=== PATIENT | female | born 1975 | race Caucasian/White ===

== ENCOUNTER 2024-02-21 17:11 | Emergency (ER) | payer SELFPAY ==
[2024-02-21] VITALS (7 sets, daily range): BP systolic 92–131; BP diastolic 47–77; PULSE 62–89; RESP 16–20; TEMP 36.4–36.8; O2SAT 95–100; BMI 21.9
--- NOTE | 2024-02-21 17:14 | ED_ITS ---
<Statement entered by Callie Gonzalez DO - 02/21/24 23:52> I was consulted by the MATHIEU, and we discussed the complexity of the problems being addressed. I approved the treatment and management plan for this patient's care in the emergency department, thus performing a substantive portion of the medical decision making. Callie Gonzalez DO Discharge Plan Disposition Patient Disposition: Home, Self-Care Condition: Good Prescriptions Prescriptions: New doxycycline hyclate 100 mg capsule 100 mg PO BID 10 Days Qty: 20 0RF prednisone 50 mg tablet 50 mg PO DAILY 5 Days Qty: 5 0RF albuterol sulfate 90 mcg/actuation HFA aerosol inhaler 1 inh inhalation Q4H PRN (Reason: shortness of breath or wheezing) Qty: 8.5 0RF iovhlkivaxosdwl-skmtawtxs-VB [Bromfed DM] 2-30-10 mg/5 mL syrup 5 ml PO Q4H PRN (Reason: sinus symptoms) Qty: 118 0RF Referrals Follow up/Referrals: JamesViral [Referring] - See instructions Activity Restrictions/Add. Instructions Additional Instructions/Restrictions: Please follow-up with your PCP for no improvement within 48 hours. Absent antibiotics steroids and inhaler cough medicine to your pharmacy. If you have increasing or worsening signs or symptoms return to the ER as needed Clinical Impressions Clinical Impression: Bronchitis, Acute lower respiratory tract infection Stand Alone Forms Stand Alone Forms: Work/School Release Print Language Print Language: Amharic Discharge ED Provider: Callie Gonzalez General Adult HPI General Chief complaint: Upper Respiratory Infection Stated complaint: abdominal pain Time Seen by Provider: 02/21/24 17:14 History of Present Illness HPI narrative: Patient presents for evaluation of nonproductive cough fever and chest wall pain with coughing. Patient states she began having a fever and nonproductive cough 2 to 3 days ago however last night she began having essentially intractable coughing and has associated chest wall pain in the left lower rib cage and left posterior rib cage with coughing. She denies any nausea vomiting diarrhea shortness of breath hemoptysis hematochezia melena hematemesis hematuria. She is a smoker but is on no control and has had a hysterectomy. Related Data Previous Rx's ?Medication ?Instructions ?Recorded albuterol sulfate 90 mcg/actuation 1 inh inhalation Q4H PRN shortness 02/21/24 aerosol inhaler of breath or wheezing #8.5 grams oratimnpnnyxzfi-ywsyhraviovpyxh-YA 5 ml PO Q4H PRN sinus symptoms 02/21/24 2 mg-30 mg-10 mg/5 mL oral syrup #118 mL (Bromfed DM) doxycycline hyclate 100 mg capsule 100 mg PO BID 10 days #20 caps 02/21/24 prednisone 50 mg tablet 50 mg PO DAILY 5 days #5 tabs 02/21/24 Allergies Allergy/AdvReac Type Severity Reaction Status Date / Time No Known Allergies Allergy Verified 02/21/24 17:25 [facility] Disclaimer: The information contained in this section may have been updated after the patient was seen, as this information can be updated by other users. Social History Smoking Status: Current every day smoker alcohol intake: never current occupational status: employed Travel in the last 8 weeks: None ROS Obtained: Yes Systems reviewed as appropriate & no additional complaints except as documented Physical Exam General General appearance: alert and in no apparent distress Respiratory Respiratory exam: Present wheezes (Faint end expiratory wheezes in the lower lung bustillo); Absent normal lung sounds bilaterally Cardiovascular Cardiovascular exam: Present regular rate Neurological Exam Neurological exam: Present alert and oriented X3 Medical Decision Making Medical Records Medical records reviewed: Yes I reviewed the patient's medical records. Screening: Per USPSTF and CDC recommendations, given the prevalence of disease in our region, it is our hospital?s policy to screen for HIV and viral Hepatitis for all patients aged 18 and over and those with ongoing risk factors. Micah Inquiry Pt receiving controlled substance: No Vital Signs: 02/21/24 17:12 02/21/24 17:41 02/21/24 18:19 Temperature 98.2 F Temperature Source Oral Pulse Rate 74 62 Pulse Rate [Radial] 89 Respiratory Rate 16 Blood Pressure 92/56 L 110/77 Blood Pressure [Right Arm] 131/54 L Blood Pressure Mean [Right Arm] 79 Blood Pressure Source [Right Arm] Automatic Cuff Blood Pressure Position [Right Arm] Sitting 02 Sat by Pulse Oximetry 99 99 98 Oxygen Delivery Method Room Air Room Air Room Air 02/21/24 18:30 02/21/24 19:00 02/21/24 19:30 Temperature Temperature Source Pulse Rate 65 78 83 Pulse Rate [Radial] Respiratory Rate Blood Pressure 115/69 112/64 95/47 L Blood Pressure [Right Arm] Blood Pressure Mean [Right Arm] Blood Pressure Source [Right Arm] Blood Pressure Position [Right Arm] 02 Sat by Pulse Oximetry 100 95 97 Oxygen Delivery Method Room Air Lab Data Lab results reviewed: Yes I reviewed the patient's lab results. Lab Results 02/21/24 17:22: SARS-CoV-2 (PCR) Not detected, Influenza Type A (PCR) Not detected, Influenza Type B (PCR) Not detected, RSV (PCR) Not detected, Rhinovirus (PCR) Not detected 02/21/24 17:55: WBC 7.9, RBC 3.85 L, Hgb 11.1 L, Hct 34.2 L, MCV 88.8, MCH 28.8, MCHC 32.5, RDW 12.7, Plt Count 232, MPV 10.5 H, Neut % (Auto) 43.2, Lymph % (Auto) 45.2, Williamson % (Auto) 5.6, Eos % (Auto) 5.3, Baso % (Auto) 0.6, Neut # (Auto) 3.4, Lymph # (Auto) 3.6, Williamson # (Auto) 0.4, Eos # (Auto) 0.4, Baso # (Auto) 0.1, PT 10.3, INR 0.93, Sodium 137, Potassium 4.1, Chloride 105, Carbon Dioxide 27, Anion Gap 9.1, BUN 15, Creatinine 0.80, Estimated Creat Clear 76, Estimated GFR 77, Est GFR ( Amer) 93, Glucose 115 H, Calcium 9.0, Magnesium 2.3, Total Bilirubin 0.5, AST 34, ALT 17, Alkaline Phosphatase 47, Troponin I < 0.01, NT-Pro-B Natriuret Pep < 20.0, Total Protein 7.4, Albumin 4.5, Globulin 2.9, Albumin/Globulin Ratio 1.6, Lipase 78, Procalcitonin < 0.030 02/21/24 17:55 02/21/24 17:55 Orders (Tests/Meds): ED MEDICATIONS Discontinued Medications Generic Name Dose Route Start Last Admin Trade Name Freq PRN Reason Stop Dose Admin Acetaminophen 1,000 mg 02/21/24 17:33 02/21/24 18:05 Acetaminophen 500mg Tab PO 02/21/24 17:34 1,000 mg ONCE ONE Administration Albuterol/Ipratropium 6 ml 02/21/24 17:33 02/21/24 18:07 Ipratropium/Albuterol 3 Ml Neb IH 02/21/24 17:34 6 ml ONCE ONE Administration Dexamethasone Sodium Phosphate 10 mg 02/21/24 17:33 02/21/24 18:06 Dexamethasone 4mg/Ml 5ml Mdv IV 02/21/24 17:34 10 mg ONCE ONE Administration Doxycycline Hyclate 100 mg 02/21/24 20:10 Doxycycline Hycl 100 Mg Tablet PO 02/21/24 20:11 ONCE ONE Iopamidol 70 ml 02/21/24 19:17 02/21/24 19:20 Iopamidol-370 (76%);100ml Bottle IV 02/21/24 19:18 70 ml ONCE ONE Administration Ketorolac Tromethamine 15 mg 02/21/24 17:33 02/21/24 18:05 Ketorolac 30mg/Ml Vial IV 02/21/24 17:34 15 mg ONCE ONE Administration Sodium Chloride 40 ml 02/21/24 19:17 02/21/24 19:19 0.9 % Sodium Chloride 50 Ml Vial IV 02/21/24 19:18 40 ml ONCE ONE Administration ORDERS Category Date Time Status CT angio chest PE protocol Stat Cat Scan 02/21/24 19:00 Completed Chest XR 2 view (NOT portable) [XR chest 2V] Stat Exams 02/21/24 17:33 Completed BNP [NT Pro Brain Natriuretic Pep.] Stat Lab 02/21/24 17:55 Completed CBC w/Auto Diff [Complete Blood Count Auto Diff] Stat Lab 02/21/24 17:55 Completed CMP [Comprehensive Metabolic Panel] Stat Lab 02/21/24 17:55 Completed INR [Prothrombin Time INR] Stat Lab 02/21/24 17:55 Completed Lipase Stat Lab 02/21/24 17:55 Completed Magnesium Stat Lab 02/21/24 17:55 Completed Mini Respiratory Panel Stat Lab 02/21/24 17:22 Completed Procalcitonin Stat Lab 02/21/24 17:55 Completed Trop I [Troponin I] Stat Lab 02/21/24 17:55 Completed Troponin I Q3H Lab 02/21/24 22:00 Ordered Troponin I Q3H Lab 02/22/24 01:00 Ordered HEART Score History (anamnesis): Slightly suspicious ECG: Normal Age: 45-65 years Risk factors: 1-2 risk factors Troponin: </= normal limit HEART Score: 2 Medical Decision Narrative: In summary patient is a 48-year-old female who presents to the emergency department for evaluation of cough fever and chest wall pain with coughing. Patient is hemodynamically stable with a blood pressure 131/54 pulse 89 breathing 16 times a minute satting at 99% on room air upon arrival, and afebrile at 98.2. Physical exam reveals some slight tenderness in the left anterior lower rib cage in the left posterior rib cage, no palpable bony deformities, patient has faint end expiratory wheezes in the bilateral lower bustillo, patient is normal sinus rhythm on the bedside monitor satting at 99% on room air at the time my exam. Heart sounds are normal patient has no abdominal tenderness no rebound or guarding no rigidity with normal bowel sounds.. Differential diagnosis includes viral versus bacterial lower respiratory tract infection versus PE etc. Initial workup will be conducted with hematologic labs plain film chest x-ray respiratory swabs.. Initial interventions include DuoNeb Decadron Toradol Tylenol. Initial workup reviewed by me shows that her hematologic labs are nonactionable troponins undetectable and my informed interpretation of her plain film chest x-ray shows no acute processes. Respiratory panel was negative. Upon repeat evaluation patient reported still increasing pain and no improvement after initial interventions thus I have ordered CTA PE protocol despite her being negative by years criteria. Reassuringly my informed interpretation of her CT scan PE protocol does not show any thrombus however it does show bronchial thickening suggestive of bronchitis or lower respiratory tract infection but no infiltrates or other acute processes prior to radiology read. Given this patient is appropriate for discharge with prescription for steroids albuterol inhaler Bromfed and doxycycline. Patient given strict return precautions and will follow-up PCP within 48 hours. Critical Care Critical Care Time Critical Care Time: No
--- NOTE | 2024-02-21 17:33 | XR_ITS ---
PROCEDURE INFORMATION: Exam: XR Chest Exam date and time: 02/21/2024 5:27 PM Age: 48 years old Clinical indication: Cough and fever; Additional info: Cough fever chest pain with coughing TECHNIQUE: Imaging protocol: Radiologic exam of the chest. Views: 2 views. COMPARISON: No relevant prior studies available. FINDINGS: Lungs: Subtle superior segment right lower lobe opacity may represent early developing consolidation. Pleural spaces: Unremarkable. No pleural effusion. No pneumothorax. Heart/Mediastinum: Unremarkable. No cardiomegaly. Bones/joints: Unremarkable. IMPRESSION: Subtle superior segment right lower lobe opacity may represent early developing consolidation.
[2024-02-21 17:43] LABS: Coronavirus 19, PCR Not Detected (NotDetected); Human Rhinovirus Not Detected (NotDetected); Influenza A, PCR Not Detected (NotDetected); Influenza B, PCR Not Detected (NotDetected); Respiratory Syncytial Virus Not Detected (NotDetected)
[2024-02-21 18:05] LABS: Basophils # 0.1 K/mm3 (0-0.2); Basophils % 0.6 % (0.1-2.0); Eosinophils # 0.4 K/mm3 (0.0-0.4); Eosinophils % 5.3 % (0.1-12.0); Hematocrit 34.2 % (37.0-47.0); Hemoglobin 11.1 g/dL (12.2-16.2); Lymphocytes # 3.6 K/mm3 (0.7-4.5); Lymphocytes % 45.2 % (10-50); Mean Corpuscular HGB Conc 32.5 g/dL (31.8-35.4); Mean Corpuscular Hemoglobin 28.8 pg (27.0-31.2); Mean Corpuscular Volume 88.8 fl (81-99); Mean Platelet Volume 10.5 fl (7.4-10.4); Monocytes # 0.4 K/mm3 (0.1-1.0); Monocytes % 5.6 % (1.7-9.3); Neutrophils # 3.4 K/mm3 (1.8-7.8); Neutrophils % 43.2 % (37.0-80.0); Platelet Count 232 K/mm3 (142-424); Red Blood Count 3.85 M/mm3 (4.20-5.40); Red Cell Distribution Width 12.7 % (11.5-17.5); White Blood Count 7.9 K/mm3 (4.8-10.8)
[2024-02-21] MEDS: ACETAMINOPHEN 500MG TAB 1000 MG PO (18:05)
[2024-02-21] MEDS: KETOROLAC 30MG/ML VIAL 15 MG IV (18:05)
[2024-02-21] MEDS: DEXAMETHASONE 4MG/ML 5ML MDV 10 MG IV (18:06)
[2024-02-21] MEDS: IPRATROPIUM/ALBUTEROL 3 ML NEB 6 ML IH (18:07)
[2024-02-21 18:13] LABS: Albumin Level 4.5 g/dl (3.5-5.0); Chloride 105 mmol/L (98-107); Sodium 137 mmol/L (136-145)
[2024-02-21 18:16] LABS: Alanine Aminotransferase 17 U/L (12-78); Albumin/Globulin Ratio 1.6 (1.1-1.8); Alkaline Phosphatase 47 U/L (38-126); Aspartate Amino Transferase 34 U/L (14-36); Bilirubin,Total 0.5 mg/dl (0.2-1.3); Blood Urea Nitrogen 15 mg/dl (7-17); Carbon Dioxide 27 mmol/L (22.0-30.0); Creatinine Clearance Estimated 76 mL/min (50-200); Estimated Glomerular Filt Rate 77 ml/min (>60); GFR (African American) 93 ML/MIN (>60); Globulin 2.9 g/dL (1.3-3.2); Glucose 115 mg/dl (74-100); Total Protein,Serum 7.4 g/dl (6.3-8.2)
[2024-02-21 18:17] LABS: Lipase 78 U/L (23-300); Magnesium 2.3 mg/dl (1.6-2.3)
[2024-02-21 18:19] LABS: INR 0.93 (0.9-1.1); Prothrombin Time 10.3 seconds (9.2-12.1)
[2024-02-21 18:25] LABS: NT Pro Brain Natriuretic Pep. < 20.0 pg/mL (0-125)
[2024-02-21 18:46] LABS: Anion Gap 9.1 mEq/L (5-15); Potassium 4.1 mmoL/L (3.5-5.1)
--- NOTE | 2024-02-21 19:00 | CT_ITS ---
PROCEDURE INFORMATION: Exam: CTA Chest With Contrast Exam date and time: 02/21/2024 7:16 PM Age: 48 years old Clinical indication: Pain; Other: Chest; Additional info: Cough fever chest pain TECHNIQUE: Imaging protocol: Computed tomographic angiography of the chest with contrast. Exam focused on the arteries. 3D rendering (Not supervised by radiologist): MIP and/or 3D reconstructed images were created by the technologist. Radiation optimization: All CT scans at this facility use at least one of these dose optimization techniques: automated exposure control; mA and/or kV adjustment per patient size (includes targeted exams where dose is matched to clinical indication); or iterative reconstruction. Contrast material: ISOVUE; Contrast volume: 70 ml; Contrast route: INTRAVENOUS (IV); COMPARISON: CR XR CHEST 2V 02/21/2024 5:27 PM FINDINGS: Pulmonary arteries: No CT angiography evidence of pulmonary embolism. Aorta: Unremarkable. No aortic aneurysm. No aortic dissection. Lungs: Bibasilar subsegmental atelectasis without consolidation likely related to x-ray findings. Pleural spaces: Unremarkable. No pneumothorax. No pleural effusion. Heart: Unremarkable. No cardiomegaly. No pericardial effusion. Lymph nodes: Mild peribronchial edema with bilateral hilar and mediastinal reactive lymph nodes favors viral process versus reactive airways without consolidation. Bones/joints: Unremarkable. No acute fracture. Soft tissues: Unremarkable. IMPRESSION: 1. Bibasilar subsegmental atelectasis without consolidation likely related to x-ray findings. 2. Mild peribronchial edema with bilateral hilar and mediastinal reactive lymph nodes favors viral process versus reactive airways without consolidation. 3. No CT angiography evidence of pulmonary embolism.
[2024-02-21 19:18] LABS: Procalcitonin < 0.030 ng/mL (0.0-2.0)
[2024-02-21] MEDS: 0.9 % SODIUM CHLORIDE 50 ML VIAL 40 ML IV (19:19)
[2024-02-21] MEDS: IOPAMIDOL-370 (76%);100ML BOTTLE 70 ML IV (19:20)
[2024-02-21 19:53] LABS: Troponin I < 0.01 ng/ml (0.00-0.034)
[2024-02-21] MEDS: DOXYCYCLINE HYCL 100 MG TABLET PO (20:40)
== END 2024-02-21 20:50 | disposition home or self-care (01) ==
PROVIDERS: Physician Assistant; Emergency Provider Emergency Medicine
DX: J22 Unspecified acute lower respiratory infection (principal); J40 Bronchitis, not specified as acute or chronic; R50.9 Fever, unspecified; R05.9 Cough, unspecified; R07.89 Other chest pain; R10.9 Unspecified abdominal pain
CPT/HCPCS: 71046; 71275; 80053; 83690; 83735; 83880; 84145; 84484; 85025; 85610; 87631; 96374; 96375; 99285; J1100; J1885; J7620; Q9967

== ENCOUNTER 2024-03-21 15:20 | Emergency (ER) | payer SELFPAY ==
[2024-03-21 15:39] VITALS: BP 121/43; PULSE 109; RESP 18; TEMP 36.5; O2SAT 99; BMI 21.4
--- NOTE | 2024-03-21 15:46 | PC.NURSE ---
1546 Benja ANDRADE to triage to assess patient
--- NOTE | 2024-03-21 15:48 | PC.NURSE ---
1548 Per Benja ANDRADE no stroke activation at this time
--- NOTE | 2024-03-21 15:50 | PC.NURSE ---
1550 Per patient she states she has been under a lot of stress.
--- NOTE | 2024-03-21 15:51 | PC.NURSE ---
DR BUCK AT BEDSIDE
--- NOTE | 2024-03-21 15:58 | HMH.EDGENADL ---
Discharge Plan Disposition Patient Disposition: Home, Self-Care Prescriptions Prescriptions: New esomeprazole magnesium 20 mg capsule,delayed release(DR/EC) 20 mg PO DAILY 56 Days Qty: 56 1RF No Action doxycycline hyclate 100 mg capsule 100 mg PO BID 10 Days Qty: 20 0RF prednisone 50 mg tablet 50 mg PO DAILY 5 Days Qty: 5 0RF albuterol sulfate 90 mcg/actuation HFA aerosol inhaler 1 inh inhalation Q4H PRN (Reason: shortness of breath or wheezing) Qty: 8.5 0RF [id number]-[id number] [Bromfed DM] 2-30-10 mg/5 mL syrup 5 ml PO Q4H PRN (Reason: sinus symptoms) Qty: 118 0RF Referrals Follow up/Referrals: Markos Velez II, MD [Staff Physician] - See instructions Mariusz Ramirez [Primary Care Provider] - See instructions Activity Restrictions/Add. Instructions Additional Instructions/Restrictions: Call your family doctor to establish care for this visit to the emergency department and schedule follow-up within 48 hours to ensure improvement. If you have any worsening of your condition or any other concerning signs or symptoms, return to the emergency department or your primary care doctor for further evaluation. Clinical Impressions Clinical Impression: Headache, Tremor, Malaise Print Language Print Language: Serbian Discharge ED Provider: Rl Yousif General Adult HPI General Chief complaint: Headache Stated complaint: involuntary head movement Time Seen by Provider: 03/21/24 15:30 Mode of Arrival: Ambulatory Source of Information: Patient Limitations: No Limitations Description of Symptoms (Recalled from ER Triage Doc. by RN): Pt presents for evaluation of involuntary head movements and right shoulder pain x2 days. Pt states she also now has a headache. PT states tremoring started approx 1330 History of Present Illness HPI narrative: Please note that above description of symptoms, in this electronic medical record under categorization of recalled from ER triage doctor by RN are reflective of an initial nursing assessment, however, is not reflective of my full history and physical exam that was personally taken and clarified. Consequentially, this preceding description of symptoms, which may include the patient's categorized chief complaint in the EMR, do not reflect my personal clinical impression, and the ultimate description of history of present illness and patient stated complaints should be deferred to this section of the note. Unless stated otherwise or congruent with this section of the note, additional signs, symptoms, or incongruence should be interpreted as inaccurate with my clinical impression. Related Data Previous Rx's ?Medication ?Instructions ?Recorded albuterol sulfate 90 mcg/actuation 1 inh inhalation Q4H PRN shortness 02/21/24 aerosol inhaler of breath or wheezing #8.5 grams hxkxpibitgbcqpz-judncqyikaerffr-PA 5 ml PO Q4H PRN sinus symptoms 02/21/24 2 mg-30 mg-10 mg/5 mL oral syrup #118 mL (Bromfed DM) doxycycline hyclate 100 mg capsule 100 mg PO BID 10 days #20 caps 02/21/24 prednisone 50 mg tablet 50 mg PO DAILY 5 days #5 tabs 02/21/24 esomeprazole magnesium 20 mg 20 mg PO DAILY 8 weeks #56 caps 03/21/24 capsule,delayed release Allergies Allergy/AdvReac Type Severity Reaction Status Date / Time No Known Allergies Allergy Verified 02/21/24 17:25 [facility] Disclaimer: The information contained in this section may have been updated after the patient was seen, as this information can be updated by other users. Social History (Updated 02/21/24 @ 20:33 by MAGDALENO Worrell) Smoking Status: Never smoker alcohol intake: never current occupational status: employed Travel in the last 8 weeks: None Have you lived/traveled outside [place] in past 30 days?: No Contact w/someone who lives/traveled outside [place] past 30 days?: No Exposure to someone with infectious disease in past 14 days?: No Do you have a fever (greater than 100.4 F or 38 C)?: No Have you tested positive for COVID-19: No Exposed to someone with COVID-19 in past 14 days?: No Do you have a sore throat?: No Do you have a cough?: No Do you have any weakness?: No Do you have any diarrhea?: No Are you experiencing any unusual bleeding?: No Do you have any muscle aches/pain?: No Do you have any abdominal pain?: No Are you experiencing loss of taste or smell?: No ROS Obtained: Yes All systems reviewed & no additional complaints except as documented Physical Exam General General appearance: alert, in no apparent distress, anxious and other (Tearful) Head Head exam: atraumatic and normocephalic Eye Eye exam: Present normal appearance, PERRL and EOMI Neck Neck exam: Present normal inspection, full ROM and trachea midline Respiratory Respiratory exam: Absent respiratory distress, wheezes, stridor, accessory muscle use or prolonged expiratory phase Cardiovascular Cardiovascular exam: Present other (Pulses equal symmetric in upper and lower extremities) Abdominal Exam Abdominal exam: Present soft; Absent distention, tenderness or pulsatile mass Extremities Exam Extremities exam: Absent edema Neurological Exam Neurological exam: Present alert, oriented X3, CN II-XII intact and normal gait; Absent motor sensory deficit Skin Skin exam: Present warm and dry; Absent diaphoresis or erythema Medical Decision Making Medical Records Medical records reviewed: Yes I reviewed the patient's medical records. Screening: Per USPSTF and CDC recommendations, given the prevalence of disease in our region, it is our hospital?s policy to screen for HIV and viral Hepatitis for all patients aged 18 and over and those with ongoing risk factors. Micah Inquiry Pt receiving controlled substance: No Micah was queried for this patient: No Vital Signs: 03/21/24 15:39 Temperature 97.7 F Temperature Source Oral Pulse Rate [Right] 109 H Respiratory Rate 18 Blood Pressure [Right Arm] 121/43 L Blood Pressure Mean [Right Arm] 69 Blood Pressure Source [Right Arm] Automatic Cuff Blood Pressure Position [Right Arm] Sitting 02 Sat by Pulse Oximetry 99 Oxygen Delivery Method Room Air Lab Data Lab Results 03/21/24 16:01: WBC 9.0, RBC 4.38, Hgb 12.5, Hct 38.4, MCV 87.7, MCH 28.5, MCHC 32.6, RDW 12.5, Plt Count 294, MPV 10.2, Neut % (Auto) 63.2, Lymph % (Auto) 27.9, [place] % (Auto) 5.2, Eos % (Auto) 2.7, Baso % (Auto) 0.7, Neut # (Auto) 5.7, Lymph # (Auto) 2.5, [place] # (Auto) 0.5, Eos # (Auto) 0.2, Baso # (Auto) 0.1, Sodium 142, Potassium 3.4 L, Chloride 103, Carbon Dioxide 28, Anion Gap 14.4, BUN 11, Creatinine 0.70, Estimated Creat Clear 84, Estimated GFR 90, Est GFR ( Amer) 109, Glucose 92, Calcium 8.8, Phosphorus 4.0, Magnesium 2.2, Total Bilirubin 0.4, AST 35, ALT 19, Alkaline Phosphatase 66, Total Creatine Kinase 58, Total Protein 8.0, Albumin 4.8, Globulin 3.2, Albumin/Globulin Ratio 1.5, Lipase 88, Plasma/Serum Alcohol < 10 03/21/24 18:34: Urine Opiates Screen Negative, Urine Methadone Screen Negative, Ur Barbituates Screen Negative, Ur Phencyclidine Scrn Negative, Ur Amphetamines Screen Negative, U Benzodiazepines Scrn Negative, Urine Cocaine Screen Negative, U Marijuana (THC) Screen Positive H 03/21/24 16:01 03/21/24 16:01 Orders (Tests/Meds): ED MEDICATIONS Discontinued Medications Generic Name Dose Route Start Last Admin Trade Name Ivanq PRN Reason Stop Dose Admin Acetaminophen 1,000 mg 03/21/24 17:53 03/21/24 18:00 Acetaminophen 500mg Tab PO 03/21/24 17:54 1,000 mg ONCE ONE Administration Ibuprofen 600 mg 03/21/24 17:53 03/21/24 18:00 Ibuprofen 600 Mg Tablet PO 03/21/24 17:54 600 mg ONCE ONE Administration Pantoprazole Sodium 40 mg 03/21/24 17:53 03/21/24 18:00 Pantoprazole 40mg Tablet PO 03/21/24 17:54 40 mg ONCE ONE Administration ORDERS Category Date Time Status CT head/brain wo con Stat Cat Scan 03/21/24 17:53 Completed CBC w/Auto Diff [Complete Blood Count Auto Diff] Stat Lab 03/21/24 16:01 Completed CK [Creatine Kinase] Stat Lab 03/21/24 16:01 Completed CMP [Comprehensive Metabolic Panel] Stat Lab 03/21/24 16:01 Completed Ethyl Alcohol Stat Lab 03/21/24 16:01 Completed Lipase Stat Lab 03/21/24 16:01 Completed Magnesium Stat Lab 03/21/24 16:01 Completed Phosphorous Stat Lab 03/21/24 16:01 Completed UDS [Drug Screen,Urine] Stat Lab 03/21/24 18:34 Completed Medical Decision Narrative: 48-year-old female presenting with head tremor. Patient has no previous medical history. States that she has had numerous social stressors and interpersonal stressors in the very recent past. Noting separation from her , stressors with her son, etc. States that beginning over the last couple days she has had a head tremor where her head just wants to nod on its own, usually resolves within a couple minutes, but it was not stopping today. Concerned she may be having a stroke. States that she feels like she is also having tunnel vision and objects are moving toward me. Also states that she feels as if she is having floaters in the lateral vision of her right eye, but no other vision loss. Still has peripheral vision. Also noting that her both of her legs feel weak, patient has joint pain, general body aches, etc. Numerous complaints. Difficult to nail down chief complaint other than head tremor. History was obtained via conversation with patient. On arrival, patient hemodynamically stable, alert, oriented x4, appropriate, GCS 15, moving all extremities spontaneously, pupils equal and reactive to light. Full physical exam performed and significant for very clinically well-appearing female no acute distress. NIHSS 0. Visual bustillo intact. Cardiopulmonary exam normal. Patient extremely tearful, anxious. She does have intermittent tremor of the head nodding. Otherwise unremarkable exam. Differential includes acute stress reaction, anxiety, depression, metabolic abnormality, urologic abnormality, less likely to be intracranial hemorrhage, CVA, dissection, among others. Patient placed on continuous cardiac monitoring and continuous pulse ox with initial blood pressure 121/43, heart rate 109, saturation 99% on room air. Reevaluation, patient states that she has multiple more complaints. Right-sided shoulder pain, bilateral knee pain, muscle tension, cough, headache, etc. At this point, I feel the patient is having symptom magnification and/or falsification. Also states that she now remembers that she had 1 episode of dark tarry stools and epigastric burning. Patient was given Tylenol, Motrin, PPI. For symptomatic management and correction of underlying abnormalities. Workup independently interpreted and significant for nonactionable CBC or chemistry, lipase negative, urinalysis positive for THC. CT head independently interpreted, no intracranial abnormality. On reevaluation, patient resting at baseline. Patient also has no tremor at all when I am able to visualize before entering the room, but tremor appears when I walk into the room. I feel this is consistent with either stress reaction or symptom falsification. Because patient at baseline without signs or symptoms of clinical decompensation, deemed appropriate for discharge. Results were relayed to patient who voiced understanding and were agreeable to outpatient management and follow up. I discussed my clinical impression with patient and answered all questions. At this time, the evidence for any other entities in the differential is insufficient to warrant any further testing or ED observation. This was explained as well. Advisory was given that persistent or worsening symptoms require further evaluation. I confirmed the understanding of this discussion. Property Utilization Manager disclaimer Much of this encounter note is an electronic preschool assistant principal spoken language to printed text. Electronic preschool assistant principal of the spoken language may permit errors. Although I have reviewed the note, some errors may still exist. Critical Care Critical Care Time Critical Care Time: No
[2024-03-21 16:13] LABS: Basophils # 0.1 K/mm3 (0-0.2); Basophils % 0.7 % (0.1-2.0); Eosinophils # 0.2 K/mm3 (0.0-0.4); Eosinophils % 2.7 % (0.1-12.0); Hematocrit 38.4 % (37.0-47.0); Hemoglobin 12.5 g/dL (12.2-16.2); Lymphocytes # 2.5 K/mm3 (0.7-4.5); Lymphocytes % 27.9 % (10-50); Mean Corpuscular HGB Conc 32.6 g/dL (31.8-35.4); Mean Corpuscular Hemoglobin 28.5 pg (27.0-31.2); Mean Corpuscular Volume 87.7 fl (81-99); Mean Platelet Volume 10.2 fl (7.4-10.4); Monocytes # 0.5 K/mm3 (0.1-1.0); Monocytes % 5.2 % (1.7-9.3); Neutrophils # 5.7 K/mm3 (1.8-7.8); Neutrophils % 63.2 % (37.0-80.0); Platelet Count 294 K/mm3 (142-424); Red Blood Count 4.38 M/mm3 (4.20-5.40); Red Cell Distribution Width 12.5 % (11.5-17.5)
[2024-03-21 16:18] LABS: Albumin Level 4.8 g/dl (3.5-5.0); Chloride 103 mmol/L (98-107); Sodium 142 mmol/L (136-145)
[2024-03-21 16:19] LABS: Potassium 3.4 mmoL/L (3.5-5.1)
[2024-03-21 16:21] LABS: Alanine Aminotransferase 19 U/L (12-78); Albumin/Globulin Ratio 1.5 (1.1-1.8); Alkaline Phosphatase 66 U/L (38-126); Anion Gap 14.4 mEq/L (5-15); Aspartate Amino Transferase 35 U/L (14-36); Bilirubin,Total 0.4 mg/dl (0.2-1.3); Blood Urea Nitrogen 11 mg/dl (7-17); Carbon Dioxide 28 mmol/L (22.0-30.0); Creatinine Clearance Estimated 84 mL/min (50-200); Estimated Glomerular Filt Rate 90 ml/min (>60); GFR (African American) 109 ML/MIN (>60); Globulin 3.2 g/dL (1.3-3.2)
[2024-03-21 16:22] LABS: Calcium 8.8 mg/dl (8.4-10.2); Glucose 92 mg/dl (74-100); Magnesium 2.2 mg/dl (1.6-2.3)
[2024-03-21 16:30] LABS: Ethyl Alcohol < 10 mg/dl (0-10)
--- NOTE | 2024-03-21 17:53 | CT_ITS ---
PROCEDURE INFORMATION: Exam: CT Head Without Contrast Exam date and time: 03/21/2024 6:07 PM Age: 48 years old Clinical indication: Other: Tremor multiple days TECHNIQUE: Imaging protocol: Computed tomography of the head without contrast. Radiation optimization: All CT scans at this facility use at least one of these dose optimization techniques: automated exposure control; mA and/or kV adjustment per patient size (includes targeted exams where dose is matched to clinical indication); or iterative reconstruction. COMPARISON: No relevant prior studies available. FINDINGS: Brain: Normal. No hemorrhage. Unremarkable white matter. No mass effect. Cerebral ventricles: No ventriculomegaly. Paranasal sinuses: See Bones finding. Mastoid air cells: Visualized mastoid air cells are well aerated. Bones: Ylaf-op-ffyxiorq mucosal thickening of some of the ethmoids bilaterally and the right sphenoid and inferior left frontal sinus. No definite fluid levels. Soft tissues: Unremarkable. IMPRESSION: 1. No acute intracranial abnormality. 2. Incidental paranasal sinus disease of uncertain acuity.
[2024-03-21] MEDS: IBUPROFEN 600 MG TABLET PO (18:00)
[2024-03-21] MEDS: PANTOPRAZOLE 40MG TABLET 40 MG PO (18:00)
[2024-03-21] MEDS: ACETAMINOPHEN 500MG TAB 1000 MG PO (18:00)
--- NOTE | 2024-03-21 18:03 | HMH.ITSTN ---
Called about test and spoke to lead neurodiagnostic technologistpayton Heard. Per Félix go ahead and scan patient without test.
--- NOTE | 2024-03-21 18:05 | PC.NURSE ---
pt to ct
[2024-03-21 18:33] LABS: Creatine Kinase 58 U/L (30-135)
[2024-03-21 18:34] LABS: Lipase 88 U/L (23-300)
[2024-03-21 18:51] LABS: Amphetamine/Metha Screen,Urine Negative ng/ml (<1000)
[2024-03-21 18:52] LABS: Barbiturates Screen,Urine Negative ng/ml (<200); Benzodiazepines Screen,Urine Negative ng/ml (<200)
[2024-03-21 18:57] LABS: Cannabinoid Screen,Urine Positive ng/ml (<50); Cocaine Screen,Urine Negative ng/ml (<300)
[2024-03-21 18:58] LABS: Methadone Screen,Urine Negative ng/ml (<300)
[2024-03-21 18:59] LABS: Opiate Screen,Urine Negative ng/ml (<300); Phencyclidine Screen,Urine Negative ng/ml (<25)
[2024-03-21 19:40] VITALS: BP 107/67; PULSE 72; RESP 86; TEMP 36.9; O2SAT 98
== END 2024-03-21 19:45 | disposition home or self-care (01) ==
PROVIDERS: Emergency Provider Emergency Medicine; PCP Family Medicine
DX: R25.1 Tremor, unspecified (principal); R51.9 Headache, unspecified; R53.81 Other malaise; R25.0 Abnormal head movements; M25.511 Pain in right shoulder
CPT/HCPCS: 70450; 80053; 80307; 80320; 82550; 83690; 83735; 84100; 85025; 99284; G0480

== ENCOUNTER 2025-01-16 10:41 | Emergency (ER) | payer SELFPAY ==
[2025-01-16 11:14] VITALS: BP 109/58; RESP 20; TEMP 36.9; O2SAT 99; BMI 21.3
[2025-01-16 11:25] VITALS: BMI 21.2
[2025-01-16 11:30] LABS: Coronavirus 19, PCR Not Detected (NotDetected); Influenza B, PCR Not Detected (NotDetected)
--- NOTE | 2025-01-16 11:50 | CT_ITS ---
FINAL REPORT TECHNIQUE: Axial images through the abdomen and pelvis were performed without contrast. This study was performed with techniques to keep radiation doses as low as reasonably achievable, (ALARA). Individualized dose reduction techniques using automated exposure control or adjustment of mA and/or kV according to the patient's size were employed. CLINICAL HISTORY: left flank pain, possible kidney stone COMPARISON: None FINDINGS: CT ABDOMEN PELVIS WITHOUT CONTRAST: Abdomen: The lung bases are clear. The liver parenchyma is homogeneous. The gallbladder is present. The spleen, pancreas, adrenals and kidneys are unremarkable. Pelvis: The urinary bladder is decompressed. The appendix is not visualized. Surgical clips are present in the right lower quadrant. There is no pelvic mass or inflammation. The uterus is likely surgically absent. There are clips present in the left lateral pelvis as well. IMPRESSION: No acute abnormality of the abdomen or pelvis. Reviewed, Interpreted and Dictated by Pito Egan MD Transcribed by Veena Lou Authenticated and [facility]
--- NOTE | 2025-01-16 11:50 | XR_ITS ---
FINAL REPORT CLINICAL HISTORY: shortness of breath COMPARISON: None FINDINGS: A single portable view of the chest was obtained. The heart size and pulmonary vascularity are within normal limits. The mediastinum is within normal limits. No acute pulmonary abnormality is identified. The bony thorax is intact. IMPRESSION: No active cardiopulmonary disease. Reviewed, Interpreted and Dictated by Pito Egan MD Transcribed by Veena Lou Authenticated and . [facility]
--- NOTE | 2025-01-16 12:01 | ECG_ITS ---
APPROVED REPORT Exam: Resting ECG HR:94 bpm ECG Measurements Heart Rate 94 AXES MO 163 P 69 QRSd 94 QRS 74 QT 356 T 62 QTc 407 Conclusion SINUS RHYTHM POSSIBLE RIGHT VENTRICULAR CONDUCTION DELAY [RSR (QR) IN V1/V2] No STEMI Electronically signed by : RENE MENDENHALL, 01/17/2025 06:43:08
--- NOTE | 2025-01-16 12:02 | ED_ITS ---
Discharge Plan Disposition Patient Disposition: Home, Self-Care Prescriptions Prescriptions: New ondansetron 4 mg tablet,disintegrating 4 mg PO Q6H PRN (Reason: nausea and vomiting) Qty: 12 0RF No Action doxycycline hyclate 100 mg capsule 100 mg PO BID 10 Days Qty: 20 0RF prednisone 50 mg tablet 50 mg PO DAILY 5 Days Qty: 5 0RF albuterol sulfate 90 mcg/actuation HFA aerosol inhaler 1 inh inhalation Q4H PRN (Reason: shortness of breath or wheezing) Qty: 8.5 0RF goczlpnuuklecxf-idwdwwzow-SI [Bromfed DM] 2-30-10 mg/5 mL syrup 5 ml PO Q4H PRN (Reason: sinus symptoms) Qty: 118 0RF esomeprazole magnesium 20 mg capsule,delayed release(DR/EC) 20 mg PO DAILY 56 Days Qty: 56 1RF Referrals Follow up/Referrals: Ramirez,Viral, DO [Primary Care Provider, Medical] - See instructions Activity Restrictions/Add. Instructions Additional Instructions/Restrictions: Your workup today shows that you have flu A. You can take 800 mg of ibuprofen every 6 hours as needed over the next 2 to 3 days to help with your symptoms. You likely have component of pleurisy that is causing some of your pain and discomfort. You can take Tylenol 1000 mg every 6 hours as needed as well to help with your symptoms. I am given you a list of primary care doctors to follow-up with here locally. I encourage you to call them to schedule follow-up appointment. If you develop any new or worsening symptoms, or if you become concerned for your help for any reason, return to the emergency department for evaluation. I am also sending you with a course of Zofran to help with any nausea. Take this as prescribed. Clinical Impressions Clinical Impression: Influenza A Stand Alone Forms Stand Alone Forms: Work/School Release Instructions Patient Instructions: Cough Print Language Print Language: Georgian Discharge ED Provider: Law Franks Adult HPI General Chief complaint: Cough Stated complaint: fever, cough, lung pain, body aches Time Seen by Provider: 01/16/25 11:45 Mode of Arrival: Ambulatory Description of Symptoms (Recalled from ER Triage Doc. by RN): non productive cough, afebrile. Patient reports an oral temp of 103.5 this morning, body aches, headache, and pain below left lung that radiates to the back. Patient reports symptoms started on Monday. History of Present Illness HPI narrative: Lakeshia Bazan is a 49y female with past medical history of tobacco use who presents to the ED for complaints of sharp pains to the left flank and underneath her left ribs worse with breathing, body aches that began on monday and a fever of 103.5F this morning. Patient denies any abdominal pain, diarrhea. Related Data Previous Rx's ?Medication ?Instructions ?Recorded albuterol sulfate 90 mcg/actuation 1 inh inhalation Q4 H PRN shortness 02/21/24 aerosol inhaler of breath or wheezing #8.5 g joel xixntouwqowcees-xnxvzqefiowbejz-BT 5 ml PO Q4H PRN sin us symptoms 02/21/24 2 mg-30 mg-10 mg/5 mL oral syrup #118 mL (Bromfed DM) doxycycline hyclate 100 mg capsule 100 mg PO BID 10 da ys #20 caps 02/21/24 prednisone 50 mg tablet 50 mg PO DAILY 5 days #5 tab s 02/21/24 esomeprazole magnesium 20 mg 20 mg PO DAILY 8 weeks #5 6 caps 03/21/24 capsule,delayed release ondansetron 4 mg disintegrating 4 mg PO Q6H PRN nausea and 01/16/25 tablet vomiting #12 tabs Allergies Allergy/AdvReac Type Severity Reaction Status Date / Time No Known Allergies Allergy Verified 02/21/24 17:25 [facility] Disclaimer: The information contained in this section may have been updated after the patient was seen, as this information can be updated by other users. Social History (Updated 02/21/24 @ 20:33 by MAGDALENO Worrell) Smoking Status: Former smoker alcohol intake: never current occupational status: employed Travel in the last 8 weeks?: None Have you lived/traveled outside [place] in past 30 days?: No Contact w/someone who lives/traveled outside [place] past 30 days?: No Exposure to someone with infectious disease in past 14 days?: No Do you have a fever (greater than 100.4 F or 38 C)?: Yes Have you tested positive for COVID-19?: No Exposed to someone with COVID-19 in past 14 days?: No Do you have a sore throat?: No Do you have a cough?: Yes Do you have any weakness?: No Do you have any diarrhea?: No Are you experiencing any unusual bleeding?: No Do you have any muscle aches/pain?: Yes Do you have any abdominal pain?: No Are you experiencing loss of taste or smell?: No ROS Obtained: Yes Systems reviewed as appropriate & no additional complaints except as documented Physical Exam General General appearance: alert Comment: appears uncomfortable, in no acute respiratory distress Head Head exam: atraumatic Eye Eye exam: Present normal appearance ENT ENT exam: Present normal external ear exam Neck Neck exam: Present full ROM Chest Chest inspection: Present symmetric chest wall rise Respiratory Respiratory exam: Present normal lung sounds bilaterally; Absent respiratory distress, wheezes or stridor Cardiovascular Cardiovascular exam: Present regular rate and normal rhythm Abdominal Exam Abdominal exam: Present soft and tenderness (LUQ); Absent distention, guarding or rigidity Extremities Exam Extremities exam: Present normal inspection Back Exam Back exam: Present normal inspection and CVA tenderness (L); Absent CVA tenderness (R) Neurological Exam Neurological exam: Present alert and oriented X3 Psychiatric Psychiatric exam: Present normal affect Skin Skin exam: Present warm and dry Medical Decision Making Medical Records Screening: Per USPSTF and CDC recommendations, given the prevalence of disease in our region, it is our hospital?s policy to screen for HIV and viral Hepatitis for all patients aged 18 and over and those with ongoing risk factors. Micah Inquiry Pt receiving controlled substance: No Vital Signs: 01/16/25 11:14 01/16/25 12:04 01/16/25 14:58 Temperature 98.4 F 98.6 F Temperature Source Oral Oral Pulse Rate 96 H 87 Respiratory Rate 20 20 Blood Pressure 122/56 L 117/71 Blood Pressure [Right Arm] 109/58 L Blood Pressure Mean [Right Arm] 75 Blood Pressure Source Manual Cuff/ Auscultation Blood Pressure Source [Right Arm] Automatic Cuff Blood Pressure Position [Right Arm] Sitting 02 Sat by Pulse Oximetry 99 100 Oxygen Delivery Method Room Air Room Air Room Air Lab Data Lab Results 01/16/25 11:20: SARS-CoV-2 (PCR) Not detected, Influenza A Untype (PCR) Detected A, Influenza Type B (PCR) Not detected 01/16/25 12:01: Urine Color Yellow, Urine Appearance Clear, Urine pH 7.0, Ur Specific Wisdom 1.025, Urine Protein Negative, Urine Glucose (UA) Negative, Urine Ketones 3+, Urine Blood Trace-l, Urine Nitrate Negative, Urine Bilirubin 1+ A, Urine Urobilinogen 1.0, Ur Leukocyte Esterase Negative, Urine RBC None, Urine WBC Occasional, Ur Squamous Epith Cells 3-5, Urine Bacteria 1+ 01/16/25 12:16: WBC 7.7, RBC 4.28, Hgb 12.5, Hct 37.5, MCV 87.6, MCH 29.2, MCHC 33.3, RDW 12.7, Plt Count 225, MPV 10.7 H, Neut % (Auto) 66.8, Lymph % (Auto) 23.6, [place] % (Auto) 6.9, Eos % (Auto) 1.9, Baso % (Auto) 0.5, Neut # (Auto) 5.1, Lymph # (Auto) 1.8, [place] # (Auto) 0.5, Eos # (Auto) 0.2, Baso # (Auto) 0.0, D- Dimer 0.62 H, Sodium 143, Potassium 3.6, Chloride 103, Carbon Dioxide 25, Anion Gap 18.6 H, BUN 10, Creatinine 0.80, Estimated Creat Clear 72, Estimated GFR 77, Est GFR ( Amer) 93, Glucose 87, Calcium 8.9, Total Bilirubin 0.5, AST 32, ALT 22, Alkaline Phosphatase 79, Troponin I < 0.01, Total Protein 8.8 H, Albumin 5.1 H, Globulin 3.7 H, Albumin/Globulin Ratio 1.4, Lipase 93, Serum HCG, Qual Negative 01/16/25 12:16 01/16/25 12:16 Orders (Tests/Meds): ED MEDICATIONS Discontinued Medications Generic Name Dose Route Start Last Admin Trade Name Freq PRN Reason Stop Dose Admin Ketorolac Tromethamine 15 mg 01/16/25 11:50 01/16/25 12:21 Ketorolac 15mg/Ml Vial IV 01/16/25 11:51 15 mg ONCE ONE Administration Morphine Sulfate 4 mg 01/16/25 13:25 01/16/25 13:40 Morphine 4mg/Ml Syringe IV 01/16/25 13:26 4 mg ONCE ONE Administration Ondansetron HCl 4 mg 01/16/25 11:50 01/16/25 12:21 Ondansetron 4mg/2ml Vial IV 01/16/25 11:51 4 mg ONCE ONE Administration ORDERS Category Date Time Status CT abdomen pelvis wo con Stat Cat Scan 01/16/25 11:50 Completed CXR --portable [XR chest portable] Stat Exams 01/16/25 11:50 Completed CBC w/Auto Diff [Complete Blood Count Auto Diff] Stat Lab 01/16/25 12:16 Completed CMP [Comprehensive Metabolic Panel] Stat Lab 01/16/25 12:16 Completed D-Dimer Stat Lab 01/16/25 12:16 Completed Lipase Stat Lab 01/16/25 12:16 Completed Rapid PCR Covid and Flu A/B Stat Lab 01/16/25 11:20 Completed Serum [HCG Qualitative, Serum] Stat Lab 01/16/25 12:16 Completed Troponin I Stat Lab 01/16/25 12:16 Completed UA [Urinalysis and Microscopic] Stat Lab 01/16/25 12:01 Completed Medical Decision Narrative: Lakeshia Bazan is a 49y female with past medical history of tobacco use who presents to the ED for complaints of sharp pains to the left flank and underneath her left ribs worse with breathing, body aches that began on monday and a fever of 103.5F this morning. Patient denies any abdominal pain, diarrhea. On arrival, patient is hemodynamically stable, in no acute distress, breathing comfortably on room air. She does appear uncomfortable and is tearful. She has positive left-sided CVA tenderness to the right-sided CVA tenderness. Some mild left upper quadrant abdominal pain without guarding or rebound. Differential diagnosis includes, but is not limited to: viral respiratory illness, pneumonia, PE, pleurisy, pericarditis, myocarditis, UTI, pyelonephritis, ureterolithiasis, among others. The most morbid conditions were considered and workup was based on these. Hematologic labs, chest x-ray, D- dimer, EKG, troponin, urinalysis and test were obtained as well as viral COVID and flu PCR. CT abdomen pelvis without IV contrast. EKG was interpreted by me personally. Normal sinus rhythm. Mild isolated ST depression in lead V3 but no reciprocal changes. No DE shortening. QTc normal at 407 Laboratory studies show no leukocytosis, no anemia, D-dimer 0.62 but negative for PE per YEARS criteria. Electrolytes and kidney function within normal limits. Anion gap slightly elevated 18.6. Liver enzymes bili are within normal limits. Troponin negative at less than 0.01. Lipase normal at 93. Negative test. Urinalysis with 1+ bilirubin but nitrate and leukocyte esterase negative. No evidence of infection. Patient is flu a positive. Chest x-ray interpreted by me personally. No focal consolidation, no pneumothorax, no widened mediastinum, no enlargement of the cardiac silhouette. Unremarkable chest x-ray. See radiology report for details. In the ED, patient received 15 mg IV Toradol, 4 mg IV Zofran as well as IV morphine for pain. On reassessment, patient remains in stable condition. Patient symptomatology is best explained by influenza A and should improve over time. She is outside the window for any treatment with Tamiflu and I do not feel it would be of any benefit at this time. Recommended symptomatic treatment of what could be pleurisy with NSAIDs and Tylenol. Patient states that she does not currently have a primary care physician. Will provide patient with list of primary care doctors for her to follow-up with. Return precautions were given. All questions were answered. She demonstrated understanding and was in agreement with this plan. She was then discharged from the emergency department in stable condition. Critical Care Critical Care Time Critical Care Time: No
[2025-01-16 12:04] VITALS: BP 122/56; PULSE 96; O2SAT 100
[2025-01-16 12:06] LABS: Microscopic, Urine URINE MICROSCOPIC (MICROSCOPIC)
[2025-01-16 12:12] LABS: Influenza A, PCR Detected (NotDetected)
[2025-01-16 12:14] LABS: Color,Urine YELLOW (Yellow); Glucose,Urine (UA) Negative (Negative); Ketones,Urine 3+ (Negative); Leukocyte Esterase,Urine Negative (Negative); PH,Urine 7.0 (5.0-8.5); Protein,Urine Negative (Negative); Specific Gravity, Urine 1.025 (1.005-1.030); Urobilinogen,Urine 1.0 EU/dl (0.2)
[2025-01-16] MEDS: ONDANSETRON 4MG/2ML VIAL 4 MG IV (12:21)
[2025-01-16] MEDS: KETOROLAC 15MG/ML VIAL 15 MG IV (12:21)
[2025-01-16 12:23] LABS: Bilirubin,Urine 1+ (Negative)
[2025-01-16 12:24] LABS: Bacteria,Urine 1+ /lpf; WBC,Urine Occasional #/hpf (0-3)
[2025-01-16 12:32] LABS: Hematocrit 37.5 % (37.0-47.0); Hemoglobin 12.5 g/dL (12.2-16.2); Immature Granulocytes % 0.3 %; Mean Corpuscular HGB Conc 33.3 g/dL (31.8-35.4); Mean Corpuscular Hemoglobin 29.2 pg (27.0-31.2); Mean Corpuscular Volume 87.6 fl (81-99); Nucleated Red Blood Cells % 0 %; Platelet Count 225 K/mm3 (142-424); Red Blood Count 4.28 M/mm3 (4.20-5.40); Red Cell Distribution Width-SD 40.8 fL; White Blood Count 7.7 K/mm3 (4.8-10.8)
[2025-01-16 12:41] LABS: Albumin Level 5.1 g/dl (3.5-5.0); Chloride 103 mmol/L (98-107); Potassium 3.6 mmoL/L (3.5-5.1); Sodium 143 mmol/L (136-145)
[2025-01-16 12:43] LABS: Alanine Aminotransferase 22 U/L (12-78); Anion Gap 18.6 mEq/L (5-15); Aspartate Amino Transferase 32 U/L (14-36); Blood Urea Nitrogen 10 mg/dl (7-17); Carbon Dioxide 25 mmol/L (22.0-30.0); Creatinine Clearance Estimated 72 mL/min (50-200); Creatinine,Serum 0.80 mg/dl (0.52-1.04); Estimated Glomerular Filt Rate 77 ml/min (>60); GFR (African American) 93 ML/MIN (>60)
[2025-01-16 12:44] LABS: Albumin/Globulin Ratio 1.4 (1.1-1.8); Alkaline Phosphatase 79 U/L (38-126); Bilirubin,Total 0.5 mg/dl (0.2-1.3); Calcium 8.9 mg/dl (8.4-10.2); Globulin 3.7 g/dL (1.3-3.2); Glucose 87 mg/dl (74-100); Lipase 93 U/L (23-300); Total Protein,Serum 8.8 g/dl (6.3-8.2)
[2025-01-16 12:48] LABS: D-Dimer 0.62 ug/mL (0.0-0.5)
[2025-01-16 12:58] LABS: Troponin I < 0.01 ng/ml (0.00-0.034)
[2025-01-16 13:13] LABS: HCG Qualitative, Serum Negative (Negative)
[2025-01-16] MEDS: MORPHINE 4MG/ML SYRINGE 4 MG IV (13:40)
[2025-01-16 14:58] VITALS: BP 117/71; PULSE 87; RESP 20; TEMP 37
== END 2025-01-16 15:02 | disposition home or self-care (01) ==
PROVIDERS: Emergency Provider Student in an Organized Health Care Education/Training Program; PCP Family Medicine
DX: J10.1 Influenza due to other identified influenza virus with other respiratory manifestations (principal); R10.A2 Flank pain, left side; R07.81 Pleurodynia; R50.9 Fever, unspecified; Z87.891 Personal history of nicotine dependence
CPT/HCPCS: 71045; 74176; 80053; 81001; 83690; 84484; 84703; 85025; 85378; 87636; 93005; 96374; 96375; 99285; J1885; J2270; J2405